=== PATIENT | female | born 1975 | race American Indian/Alaskan Native ===

== ENCOUNTER 2018-01-06 07:44 | Emergency (ER) | payer OTHER ==
[2018-01-06 07:53] VITALS: BMI 24.5
--- NOTE | 2018-01-06 08:25 | ED PDOC ---
Arrival/HPI - General Chief Complaint: Dizziness/Lightheaded Time Seen by Provider: 01/06/18 07:47 Historian: Patient - History of Present Illness Narrative History of Present Illness (Text): 01/06/18 08:23 A 42 year old female, whose past medical history includes anemia and "chronic sinus infection", presents to the emergency department via EMS for feeling dizzy when while working at 7 AM today. The patient reports that last night she was at normal baseline with no complaints and slept well. This morning she woke up in her normal state of health and drove to work. When she got out of her car to start her shift, she suddenly felt a sensation of spinning dizziness and lightheadedness as she was walking. The patient assumed she felt that way due to the fact that she did not have anything to eat. While walking around, her symptoms worsened and she went back to her car and ate a nectarine in attempts to relieve her symptoms. Immediately after eating the nectarine the patient felt that she had to throw up. That is when her and her coworker decided it was best to call the ambulance. She notes that two weeks ago she began to feel weak and fatigued, but for the last couple of days she has been at baseline. The patient denies any cough, chest pain, headaches, vomiting, diarrhea, or any other complaints at this time. She notes she was told by her physician that she was anemic a few weeks ago and reportedly "had an infusion" two weeks ago. She also states she started a new vegan diet two weeks ago although today's symptoms were sudden onset. Dizziness worse with movements and head movement. No associated headache or chest pain or shortness of breath. No incontinence of urine or stool. No tremors. No numbness or tingling or weakness noted to arms or legs. Dizziness improved when she stays still. Denies any bloody urine or stool. 01/06/18 15:17 Time/Duration: Prior to Arrival Symptom Onset: Sudden Symptom Course: Unchanged Severity Level: Mild Activities at Onset: Light Context: Walking, Work Past Medical History - Provider Review Nursing Documentation Reviewed: Yes - Infectious Disease Hx of Infectious Diseases: None - Reproductive Menopause: No - Cardiac Hx Cardiac Disorders: No - Pulmonary Hx Respiratory Disorders: No - Neurological Hx Neurological Disorder: No - HEENT Hx HEENT Disorder: No - Renal Hx Renal Disorder: No - Endocrine/Metabolic Hx Endocrine Disorders: No - Hematological/Oncological Hx AIDS: Yes - Integumentary Hx Dermatological Disorder: No - Musculoskeletal/Rheumatological Hx Musculoskeletal Disorders: No - Gastrointestinal Hx Gastrointestinal Disorders: No - Genitourinary/Gynecological Hx Genitourinary Disorders: No - Psychiatric Hx Psychophysiologic Disorder: No Hx Substance Use: No - Anesthesia Hx Anesthesia: No Hx Anesthesia Reactions: No Hx Malignant Hyperthermia: No Family/Social History - Physician Review Nursing Documentation Reviewed: Yes Family/Social History: No Known Family HX Smoking Status: Never Smoked Hx Alcohol Use: No Hx Substance Use: No Allergies/Home Meds Allergies/Adverse Reactions: Allergies No Known Allergies Allergy (Verified 01/06/18 08:00) Review of Systems - Review of Systems Constitutional: Fatigue. absent: Fevers Eyes: absent: Vision Changes, Eye Pain ENT: Sinus Congestion. absent: Hearing Changes, Tinnitus, TMJ Pain, Voice Changes, Sore Throat, Rhinorrhea, Epistaxis Respiratory: absent: SOB, Cough Cardiovascular: absent: Chest Pain, Edema, Calf Pain, COREA, Orthopnea, Syncope Gastrointestinal: Abdominal Pain (mild epigastric pain). absent: Diarrhea, Vomiting Genitourinary Female: absent: Dysuria, Frequency, Hematuria Musculoskeletal: absent: Back Pain, Neck Pain Skin: absent: Rash Neurological: Dizziness, Disequilibrium. absent: Headache, Focal Weakness, Gait Changes, Speech Changes, Facial Droop, Seizure Endocrine: absent: Polyuria Hemo/Lymphatic: absent: Easy Bleeding Physical Exam - Physical Exam Narrative Physical Exam (Text): 01/06/18 08:24 Head: Atraumatic. Normocephalic. Eyes: PERRL. EOMI. Conjunctivae are not pale. ENT: Mucous membranes are moist and intact. Oropharynx is clear and symmetric. No facial edema or erythema. Neck: Supple. Full ROM. No JVD. No lymphadenopathy. Cardiovascular: Regular rate. Regular rhythm. No murmurs, rubs, or gallops. Distal pulses are 2+ and symmetric. Pulmonary/Chest: No evidence of respiratory distress. Clear to auscultation bilaterally. No wheezing, rales or rhonchi. Abdominal: Soft and non-distended. Mild epigastric pain. No rebound, guarding , or rigidity. No organomegaly. Good bowel sounds. Back: No CVA tenderness. Extremities: No edema. No cyanosis. No clubbing. Full range of motion in all extremities. No calf tenderness. Skin: Skin is warm and dry. No petechiae. No purpura. Neurological: Alert, awake, and oriented to person, place, time, and situation. Normal speech. No facial droop. No pronator drift. Normal finger to nose. Motor and sensory exam intact. Symptoms of dizziness precipitated by sitting up, head movements, dizziness resolved when staying still after 10 seconds. Psychiatric: Good eye contact. Normal interaction, affect, and behavior. Denies depression. Vital Signs Reviewed: Yes Vital Signs Temp Pulse Resp BP Pulse Ox 01/06/18 11:02 86 18 122/79 98 01/06/18 10:07 84 18 120/85 100 01/06/18 08:29 98.0 F 83 17 118/91 H 99 01/06/18 07:53 98.6 F 86 18 118/91 H 99 Temperature: Afebrile Blood Pressure: Normal Pulse: Regular Respiratory Rate: Normal Appearance: Positive for: Non-Toxic Pain Distress: Mild Mental Status: Positive for: Alert and Oriented X 3 Medical Decision Making ED Course and Treatment: 01/06/18 08:25 Impression: A 42 year old female with sudden onset of dizziness. Patient upon arrival to ED has no focal deficits noted on neurological exam, with no focal weakness or speech difficulty. Normal finger to nose. Normal rapid alternating movements. She denies any chest pain or sob. Denies numbness or weakness. Coworker present states that there was no change in mental status or speech disturbance. She denies any significant family hx of CAD or strokes. On exam, dizziness is positional in nature, improved when staying still. She reports "chronic sinus problems". On exam no fever or facial swelling. Meclizine given. Patient observed with serial exams in ED. After medication and period of observation, there is complete resolution of dizziness. She is not orthostatic. She has steady gait. No abdominal pain on re-evaluation. No nausea. No angioedema. CV stable. Imaging studies including head ct and cxr reviewed with patient. Limitations of imaging studies reviewed with patient, although given resolution of symptoms, it's initial positional nature, suspect vertigo. She has steady gait on discharge. Advised follow-up with her PMD, return for any return of symptoms. Risks/side effects of Meclizine reviewed with patient. - Lab Interpretations Lab Results: 01/06/18 08:00 01/06/18 08:00 Lab Results 01/06/18 11:12: POC Glucose (mg/dL) 84 01/06/18 09:30: Urine Color Yellow, Urine Appearance Clear, Urine pH 7.5, Ur Specific [place] 1.010, Urine Protein Negative, Urine Glucose (UA) Negative, Urine Ketones Negative, Urine Blood Negative, Urine Nitrate Negative, Urine Bilirubin Negative, Urine Urobilinogen 0.2, Ur Leukocyte Esterase Negative, Urine HCG, Qual Negative 01/06/18 08:22: POC Glucose (mg/dL) 95 01/06/18 08:00: WBC 6.6, RBC 4.41, Hgb 11.9 L, Hct 35.5 L, MCV 80.5, MCH 27.0, MCHC 33.5, RDW 14.3, Plt Count 198, MPV 10.7, Gran % 53.6, Lymph % (Auto) 35.0, [place] % (Auto) 6.5 H, Eos % (Auto) 4.4, Baso % (Auto) 0.5, Gran # 3.52, Lymph # ( Auto) 2.3, [place] # (Auto) 0.4, Eos # (Auto) 0.3, Baso # (Auto) 0.03 01/06/18 08:00: Sodium 140, Potassium 4.0, Chloride 104, Carbon Dioxide 24, Anion Gap 16, BUN 8, Creatinine 0.7, Est GFR ( Amer) > 60, Est GFR (Non- Af Amer) > 60, Random Glucose 92, Calcium 10.3, Total Bilirubin 0.5, AST 20, ALT 18, Alkaline Phosphatase 48, Lactate Dehydrogenase 497, Total Creatine Kinase 62, Troponin I < 0.01, Total Protein 7.4, Albumin 4.3, Globulin 3.1, Albumin/Globulin Ratio 1.4, Amylase 94, Lipase 139 - RAD Interpretation Radiology Orders: 01/06/18 08:14 HEAD W/O CONTRAST [CT] Stat 01/06/18 08:15 CHEST ONE VIEW [RAD] Stat Rn Angiography: Radiologist - EKG Interpretation EKG Interpretation (Text): 01/06/18 15:25 EKG at 0756 normal sinus rhythm rate of 88 with sinus arrhythmia, no ischemic st changes Interpreted by ED Physician: Yes Type: 12 lead EKG - Medication Orders Current Medication Orders: Discontinued Medications Meclizine HCl (Antivert) 25 mg PO STAT STA Stop: 01/06/18 08:19 Last Admin: 01/06/18 08:29 Dose: 25 mg - Scribe Statement The provider has reviewed the documentation as recorded by the Alexy Lee Provider Scribe Attestation: All medical record entries made by the Scribe were at my direction and personally dictated by me. I have reviewed the chart and agree that the record accurately reflects my personal performance of the history, physical exam, medical decision making, and the department course for this patient. I have also personally directed, reviewed, and agree with the discharge instructions and disposition. Disposition/Present on Arrival - Present on Arrival Any Indicators Present on Arrival: No History of DVT/PE: No History of Uncontrolled Diabetes: No Urinary Catheter: No History of Decub. Ulcer: No History Surgical Site Infection Following: None - Disposition Have Diagnosis and Disposition been Completed?: Yes Diagnosis: Vertigo, Dizziness Disposition: HOME/ ROUTINE Disposition Time: 11:07 Patient Plan: Discharge Condition: GOOD Discharge Instructions (ExitCare): Vertigo (a Type of Dizziness) (DC) Additional Instructions: For ANY headaches, ANY chest pain or shortness of breath, any leg pain or swelling, any abdominal pain, any dark or bloody stools, any fevers/ chills, any persistent or worsening of any symptoms, get rechecked. Take Meclizine (Antivert) as directed. Follow-up with your physician in 1-2 days. Prescriptions: Meclizine [Meclizine*] 25 mg PO Q6 PRN #12 tab PRN Reason: dizzy Referrals: [facility] Emiliana Del Rosario, [Primary Care Provider] - Follow up with primary Forms: [employer] ([place]), WORK NOTE
[2018-01-06 08:33] VITALS: TEMP 98
[2018-01-06 08:37] LABS: BASO # 0.03 K/mm3 (0.0-2.0); BASO % 0.5 % (0.0-3.0); EOS # 0.3 (0.0-0.7); EOS % 4.4 % (1.5-5.0); GRAN # 3.52 (1.4-6.5); GRAN % 53.6 % (50.0-68.0); HEMOGLOBIN 11.9 g/dL (12.0-16.0); LYMPH # 2.3 (1.2-3.4); MEAN CELL VOLUME 80.5 fl (80.0-105.0); MEAN CORPUSCULAR HGB CONC 33.5 g/dl (31.0-37.0); MEAN PLATELET VOLUME 10.7 fl (7.0-11.0); MONO # 0.4 (0.1-0.6); MONO % 6.5 % (1.0-6.0); RBC 4.41 10^6/uL (3.5-6.1); RED CELL DISTRIBUTION WIDTH 14.3 % (11.5-14.5); WHITE BLOOD COUNT 6.6 10^3/ul (4.5-11.0)
[2018-01-06 08:51] LABS: ALB/GLOB RATIO 1.4 (1.1-1.8); ALBUMIN 4.3 g/dL (3.0-4.8); ALT/SGPT 18 U/L (7-56); AMYLASE 94 U/L (35-125); AST/SGOT 20 U/L (14-36); BLOOD UREA NITROGEN 8 mg/dL (7-21); CALCIUM 10.3 mg/dL (8.4-10.5); GFR AFRICAN-AMERICAN > 60; GFR NON-AFRICAN AMERICAN > 60; LIPASE 139 U/L (23-300)
[2018-01-06 09:01] LABS: TROPONIN I < 0.01 ng/mL
--- NOTE | 2018-01-06 09:55 | CT ---
PROCEDURE: CT HEAD WITHOUT CONTRAST. HISTORY: sudden onset dizzy, lightheaded COMPARISON: None available. TECHNIQUE: Axial computed tomography images were obtained through the head/brain without intravenous contrast. Radiation dose: Total exam DLP = 803 mGy-cm. This CT exam was performed using one or more of the following dose reduction techniques: Automated exposure control, adjustment of the mA and/or kV according to patient size, and/or use of iterative reconstruction technique. FINDINGS: HEMORRHAGE: No intracranial hemorrhage. BRAIN: No mass effect or edema. No atrophy or chronic microvascular ischemic changes. VENTRICLES: Unremarkable. No hydrocephalus. CALVARIUM: Unremarkable. PARANASAL SINUSES: Unremarkable as visualized. No significant inflammatory changes. MASTOID AIR CELLS: Unremarkable as visualized. No inflammatory changes. OTHER FINDINGS: None. IMPRESSION: Normal CT of the Head.
--- NOTE | 2018-01-06 09:56 | RAD ---
PROCEDURE: CHEST RADIOGRAPH, 1 VIEW HISTORY: dizzy, lightheaded COMPARISON: None available. FINDINGS: LUNGS: Clear. PLEURA: No pneumothorax or pleural fluid seen. CARDIOVASCULAR: Normal. OSSEOUS STRUCTURES: No significant abnormalities. VISUALIZED UPPER ABDOMEN: Normal. OTHER FINDINGS: None. IMPRESSION: No active disease.
[2018-01-06 09:57] LABS: PH,URINE 7.5 (4.7-8.0); URINE APPEARANCE CLEAR (CLEAR); URINE BILIRUBIN NEGATIVE (NEGATIVE); URINE BLOOD NEGATIVE (NEGATIVE); URINE COLOR YELLOW (YELLOW); URINE GLUCOSE (UA) NEGATIVE (NEGATIVE); URINE LEUKOCYTE ESTERASE NEGATIVE Leu/uL (NEGATIVE); URINE PROTEIN NEGATIVE mg/dL (<30 mg/dL); URINE UROBILINOGEN 0.2 E.U./dL (<1 E.U./dL)
[2018-01-06 10:02] LABS: HCG,QUALITATIVE URINE NEGATIVE (NEGATIVE)
[2018-01-06 10:08] VITALS: RESP 18
[2018-01-06 11:02] VITALS: BP 122/79; PULSE 86; O2SAT 98
--- NOTE | 2018-01-06 16:01 | CARD ---
APPROVED REPORT EKG Measurement Heart [id number] <Conclusion> Normal sinus rhythm with sinus arrhythmia Normal ECG
== END 2018-01-06 11:27 | disposition home or self-care (01) ==
LOC: ED 07:44
DX: R42 Dizziness and giddiness (principal)